=== PATIENT | female | born 1970 | race Caucasian/White ===

== ENCOUNTER 2019-06-23 07:22 | Day surgery (SDC) | payer OTHER ==
[2019-06-23] MEDS ORDERED: PROPOFOL 20 ML (09:53)
[2019-06-23] MEDS ORDERED: CLINDAMYCIN 900 MG (PMX) 50 ML IVPB (09:53)
[2019-06-23] MEDS ORDERED: LIDOCAINE 2% (SDV) 5 ML INJ (09:53)
[2019-06-23] MEDS ORDERED: MIDAZOLAM 1 MG/ML 2 ML INJ (10:02)
[2019-06-23] MEDS ORDERED: BUPIVACAINE 0.5% (SDV) 30 ML INJ (10:30)
[2019-06-23] MEDS ORDERED: ISOSULFAN BLUE 1% 5 ML INJ SC (10:31)
[2019-06-23] MEDS ORDERED: SUCCINYLCHOLINE CHLORIDE 100 MG/5 ML SYG IV (11:19)
[2019-06-23] MEDS ORDERED: ONDANSETRON 4 MG INJ (11:37)
[2019-06-23] MEDS ORDERED: METOCLOPRAMIDE 10 MG INJ (11:37)
[2019-06-23] MEDS ORDERED: FAMOTIDINE 20 MG INJ (11:37)
[2019-06-23] MEDS ORDERED: DEXAMETHASONE 4 MG/ML 5 ML INJ (11:37)
[2019-06-23] MEDS: BUPIVACAINE 0.5%/EPI (SDV) 10 ML INJ (11:50)
[2019-06-23] MEDS ORDERED: MEPERIDINE 25 MG INJ IV (12:00)
[2019-06-23] MEDS ORDERED: OXYCODONE/ACETAMINOPHEN (5/325) TAB PO ×2 (12:00)
[2019-06-23] MEDS ORDERED: ONDANSETRON 4 MG INJ IV ×2 (12:00→13:00)
[2019-06-23] MEDS ORDERED: DIPHENHYDRAMINE 50 MG INJ IV (12:00)
[2019-06-23] MEDS ORDERED: HYDROmorphONE 1 MG/5 ML IV SYRINGE IV ×3 (12:00)
[2019-06-23] MEDS ORDERED: KETOROLAC 30 MG INJ IV (13:00)
[2019-06-23] MEDS ORDERED: IBUPROFEN 600 MG TAB PO (13:00)
== END 2019-06-23 15:35 | disposition home or self-care (01) ==
LOC: SDS 07:22
DX: D24.2 Benign neoplasm of left breast (principal); D24.1 Benign neoplasm of right breast
CPT/HCPCS: 19120; 88307